=== PATIENT | female | born 1975 | race Caucasian/White ===

== ENCOUNTER 2018-11-08 17:36 | Emergency (ER) | payer MEDICAID ==
[~2018-11-08] VITALS: Ht 157.5 cm; Wt 66.3 kg
[~2018-11-08 17:36] MED LIST: CALC600T5 PO
[2018-11-08 17:41] VITALS: Ht 157.5 cm; Wt 66.3 kg
[2018-11-08] MEDS ORDERED: KETOROLAC 30 MG INJ IM STA ×2 (19:53→20:57)
--- NOTE | 2018-11-08 20:04 | ERD ---
ER Documentation Chief Complaint Chief Complaint Fever, LONG, CWP, ST X 2 days HPI 43-year-old female no reported past medical history who presents with 2-day complaint of fever, headache, head congestion, dry cough, sore throat, sinus pressure. Had intermittent pleuritic type chest discomfort with a dry cough. With nausea and one episode of vomiting and mild epigastric abdominal discomfort. She otherwise denies chest pain at rest or with exertion, SOB, dyspnea, LE swelling. Denies any other sick contacts at home. She reports to be in pretty good health prior to this episode. Also with complaint of urinary frequency. Took Advil which helps with the pain somewhat. Time exam nation patient was noted for fever and tachycardia and mild distress. ROS All systems reviewed and are negative except as per history of present illness. Medications Home Meds Active Scripts Tramadol HCl (Tramadol HCl) 50 Mg Tablet, 50 MG PO Q6 PRN for PAIN, #7 TAB Prov:KAILASHUDINEMAURICIOHO PA-C 11/08/18 Amoxicillin* (Amoxicillin*) 500 Mg Cap, 500 MG PO BID for 10 Days, CAP Prov:JEUDINEMAURICIOHO PA-C 11/08/18 Acetaminophen* (Tylophen*) 500 Mg Capsule, 1 CAP PO Q6H PRN for PAIN AND OR ELEVATED TEMP, #30 CAP Prov:KAILASHUDINE,MAURICIOHO PA-C 11/08/18 Reported Medications Calcium Carbonate (CALCIUM) 600 Mg Tablet, 600 MG PO DAILY 08/16/13 Discontinued Scripts Cephalexin* (Keflex*) 500 Mg Capsule, 500 MG PO QID for 7 Days, CAP Prov:JEUDINE,MAURICIOHO PA-C 11/08/18 Allergies Allergies: Coded Allergies: No Known Allergy (Unverified , 08/16/13) PMhx/Soc Medical and Surgical Hx: pt denies Medical Hx History of Surgery: Yes (csection, r fingers after accident) Anesthesia Reaction: No Hx Alcohol Use: No Hx Substance Use: No Hx Tobacco Use: No Smoking Status: Never smoker FmHx Family History: No diabetes, No coronary disease, No other Physical Exam Vitals Vital Signs Date Temp Pulse Resp B/P (MAP) Pulse Ox O2 O2 Flow FiO2 Time Delivery Rate 11/08/18 99.0 107 18 121/69 95 Room Air 22:55 (86) 11/08/18 110 22:45 11/08/18 100.9 21:46 11/08/18 100.9 21:45 11/08/18 100.9 21:40 11/08/18 101.9 129 18 150/75 98 17:41 (100) Physical Exam I have reviewed the triage vital signs. Const: Well nourished, well developed, appears stated age, mild distress Eyes: PERRL, no conjunctival injection HENT: NCAT, Neck supple without meningismus, mild erythema posterior pharynx but no exudates, discharge, no prominent edema CV: RRR, Warm, well-perfused extremities RESP: CTAB, Unlabored respiratory effort GI: soft, tenderness to deep palpation to epigastrium, no tenderness lateral quadrants, non-distended, no rebound or guarding, appropriate bowel sounds, no masses or scars MSK: No gross deformities appreciated Skin: Warm, dry. No rashes Neuro: grossly non focal Psych: Appropriate mood and affect. Result Diagram: 11/08/18200211/08/182003 Results 24 hrs Laboratory Tests Test 11/08/18 20:03 11/08/18 20:04 11/08/18 20:45 11/08/18 20:48 White Blood Count 20.0 10^3/ul Red Blood Count 4.86 10^6/ul Hemoglobin 15.2 g/dl Hematocrit 43.2 % Mean Corpuscular 88.9 fl Volume Mean Corpuscular 31.3 pg Hemoglobin Mean Corpuscular 35.2 g/dl Hemoglobin Concen t Red Cell 12.4 % Distribution Width Platelet Count 268 10^3/UL Mean Platelet 10.5 fl Volume Immature 0.500 % Granulocytes % Neutrophils % 86.7 % Lymphocytes % 8.2 % Monocytes % 4.2 % Eosinophils % 0.1 % Basophils % 0.3 % Nucleated Red 0.0 /100WBC Blood Cells % Immature 0.100 10^3/ul Granulocytes # Neutrophils # 17.3 10^3/ul Lymphocytes # 1.6 10^3/ul Monocytes # 0.8 10^3/ul Eosinophils # 0.0 10^3/ul Basophils # 0.1 10^3/ul Nucleated Red 0.0 10^3/ul Blood Cells # Sodium Level 139 mmol/L Potassium Level 3.4 mmol/L Chloride Level 99 mmol/L Carbon Dioxide 28 mmol/L Level Anion Gap 12 Blood Urea 7 mg/dl Nitrogen Creatinine 0.51 mg/dl Est Glomerular > 60 mL/min Filtrat Rate mL/min Glucose Level 140 mg/dl Calcium Level 9.7 mg/dl Total Bilirubin 0.7 mg/dl Direct Bilirubin 0.00 mg/dl Indirect 0.7 mg/dl Bilirubin Aspartate Amino 30 IU/L Transf (AST/SGOT) Alanine 40 IU/L Aminotransferase (ALT/SGPT) Alkaline 100 IU/L Phosphatase Total Protein 7.8 g/dl Albumin 4.4 g/dl Globulin 3.40 g/dl Albumin/Globulin 1.29 Ratio Urine Color STRAW Urine Clarity CLEAR Urine pH 9.0 Urine Specific 1.005 Shade Urine Ketones NEGATIVE mg/dL Urine Nitrite NEGATIVE mg/dL Urine Bilirubin NEGATIVE mg/dL Urine NEGATIVE mg/dL Urobilinogen Urine Leukocyte NEGATIVE Pavan/ul Esterase Urine Microscopic 5 /HPF RBC Urine Microscopic 0 /HPF WBC Urine Hemoglobin 2+ mg/dL Urine Glucose NEGATIVE mg/dL Urine Total NEGATIVE mg/dl Protein POC Beta HCG, NEGATIVE Qualitative Current Medications Medications Dose Sig/Francisca Start Time Status Last (Trade) Ordered Route PRN Stop Time Admin Dose Reason Admin Ketorolac 30 mg ONCE STAT 11/08/18 DC Tromethamine IM 19:53 (Toradol) 11/08/18 19:56 Ketorolac 30 mg ONCE STAT 11/08/18 DC 11/08/18 Tromethamine IM 20:57 21:04 (Toradol) 11/08/18 20:58 Ibuprofen 600 mg ONCE ONCE 11/08/18 DC 11/08/18 (Motrin) PO 22:00 21:46 11/08/18 22:01 650 mg ONCE ONCE 11/08/18 DC 11/08/18 Acetaminophen PO 22:00 21:45 (Tylenol 11/08/18 22:01 Tab) Procedures/MDM 43 yo F who presents with URI type symptoms, fevers, epigastric abdominal pain. Noted with fever, tachycardia and WBC 20k. Nonetheless below work up has been unremarkable. The patient does not exhibit any clinical signs or symptoms concerning for serious bacterial infection or systemic illness. Based on history and clinical exam findings the patient does not appear to have evidence of pneumonia, strep pharyngitis, urinary tract infection, bacteremia, sepsis, or meningitis. Elevation in WBC count may be secondary to viral etiology. Patient with mild epigastric pain but with reassuring abdominal examination. Case discussed with attending and further imaging deferred at this time and patient asked to return in 8-12 hours for reassessment and further work up if necessary. Patient with sinus congestion and sore throat which is her most prominent complaint. Will elect to treat with amoxicillin. DISPOSITION PLAN: We discussed follow up with the patient's primary care doctor within 24 to 48 hours. Patient counseled regarding my diagnostic impression and care plan. Prior to discharge all questions answered. Pt agrees with treatment plan and understands strict return precautions. Precautionary instructions provided including instructions to return to the ER if not improving or for any worsening or changing symptoms or concerns. Disclaimer: Inadvertent spelling and grammatical errors are likely due to EHR/dictation software use and do not reflect on the overall quality of patient care. Also, please note that the electronic time recorded on this note does not necessarily reflect the actual time of the patient encounter. Departure Condition: Stable SHEREEN BENJAMIN PA-C Nov 08, 2018 20:04
[2018-11-08] MEDS ORDERED: IBUPROFEN 600 MG TAB PO ONE (22:00)
[2018-11-08] MEDS ORDERED: ACETAMINOPHEN 325 MG TAB PO ONE (22:00)
[2018-11-08] MEDS ORDERED: CEPH-443 PO (22:29)
[2018-11-08] MEDS ORDERED: ACET500C5 PO (22:29)
[2018-11-08] MEDS ORDERED: AMOX500C2 PO (22:29)
[2018-11-08] MEDS ORDERED: TRAM50TA2 PO (22:32)
[2018-11-08 22:55] VITALS: BP 121/69; PULSE 107; RESP 18
== END 2018-11-08 22:55 | disposition home or self-care (01) ==
LOC: FTE 17:36
DX: R50.9 Fever, unspecified (principal); R10.13 Epigastric pain; R00.0 Tachycardia, unspecified
CPT/HCPCS: 71046; 80053; 81001; 81025; 85025; 86308; 87400; 93005; 96372; J1885; Z7502; Z7610

== ENCOUNTER 2018-11-09 06:34 | Emergency (ER) | payer MEDICAID ==
[~2018-11-09] VITALS: Wt 66.0 kg
[~2018-11-09 06:34] MED LIST changes: +ACET500C5 PO; +AMOX500C2 PO; +TRAM50TA2 PO
[2018-11-09 06:51] VITALS: BP 123/69; PULSE 87; RESP 20
[2018-11-09] MEDS ORDERED: ONDANSETRON (ODT) 4 MG TAB ODT STA (08:28)
[2018-11-09] MEDS ORDERED: KETOROLAC 30 MG INJ IM STA (08:28)
--- NOTE | 2018-11-09 12:59 | ERD ---
ER Documentation Chief Complaint Chief Complaint marycruz, no complaints HPI 43-year-old woman seen and evaluated yesterday for URI symptoms and told to return today for reevaluation states she feels much better overall. She states she has continued mild symptoms including congestion, headache, and mild cough but she has been using her antibiotic and NSAIDs as prescribed. She denies neck pain or stiffness, no dysuria, no abdominal pain, no chest pain or shortness of breath. ROS All systems reviewed and are negative except as per history of present illness. Medications Home Meds Active Scripts Tramadol HCl (Tramadol HCl) 50 Mg Tablet, 50 MG PO Q6 PRN for PAIN, #7 TAB Prov:SHEREEN BENJAMIN PA-C 11/08/18 Amoxicillin* (Amoxicillin*) 500 Mg Cap, 500 MG PO BID for 10 Days, CAP Prov:SHEREEN BENJAMIN PA-C 11/08/18 Acetaminophen* (Tylophen*) 500 Mg Capsule, 1 CAP PO Q6H PRN for PAIN AND OR ELEVATED TEMP, #30 CAP Prov:SHEREEN BENJAMIN PA-C 11/08/18 Reported Medications Calcium Carbonate (CALCIUM) 600 Mg Tablet, 600 MG PO DAILY 08/16/13 Discontinued Scripts Cephalexin* (Keflex*) 500 Mg Capsule, 500 MG PO QID for 7 Days, CAP Prov:SHEREEN BENJAMIN PA-C 11/08/18 Allergies Allergies: Coded Allergies: No Known Allergy (Unverified , 08/16/13) PMhx/Soc History of Surgery: Yes (csection, r fingers after accident) Anesthesia Reaction: No Hx Alcohol Use: No Hx Substance Use: No Hx Tobacco Use: No Smoking Status: Never smoker Physical Exam Vitals Vital Signs Date Temp Pulse Resp B/P (MAP) Pulse Ox O2 O2 Flow FiO2 Time Delivery Rate 11/09/18 97.4 87 20 123/69 95 06:51 (87) Physical Exam GENERAL: Well-developed, well-nourished, well-hydrated, in no apparent distress, looks nontoxic in appearance HEENT: Moist mucous membranes, pink conjunctiva, no cervical spine tenderness or step-off deformities, no goiter, no jaundice or icterus, extraocular movements intact without pain. No submandibular induration, and no pharyngeal erythema NEURO: Alert and oriented 3, cranial nerves II through XII intact bilaterally, pupils equal round reactive to light, no focal deficits or facial asymmetry, sensation intact distally Strength 5/5 in upper and lower extremities bilaterally CARDIAC: Regular rate and rhythm, no murmurs rubs or gallops LUNGS: Clear bilaterally no wheezing crackles or stridor ABDOMEN: Soft nontender, no guarding, no rigidity, no rebound, no psoas sign no obturator sign. Normoactive bowel sounds Results 24 hrs Laboratory Tests Test 11/09/18 08:40 POC Beta HCG, Qualitative NEGATIVE Current Medications Medications Dose Sig/Francisca Start Time Status Last (Trade) Ordered Route PRN Stop Time Admin Dose Reason Admin Ketorolac 30 mg ONCE STAT 11/09/18 DC 11/09/18 Tromethamine IM 08: 08:50 (Toradol) 11/09/18 08:29 Ondansetron 4 mg ONCE STAT 11/09/18 DC 11/09/18 HCl (Zofran ODT 08:28 08:50 Odt) 11/09/18 08:29 Procedures/MDM Patient does continue with a mild continued headache and administered Toradol 30 mg IM and Zofran 4 mg p.o. for nausea. Patient looks well and is afebrile here vital signs are normal and she will be discharged to continue outpatient management and follow-up with PMD. Differential diagnoses considered, included but not limited to acute coronary syndrome, pulmonary embolism, aortic dissection, abdominal aortic aneurysm, sepsis, stroke, meningitis, encephalitis, pneumonia, appendicitis, cholecystitis, bowel obstruction, pyelonephritis, nephrolithiasis, cystitis, as well as metabolic, hematologic, and electrolyte abnormalities. As well as abscess, cellulitis, fractures, and dislocations. Patient feels much better at this time, and vital signs are normal, symptoms have improved. I did give strict instructions to return to the ED if symptoms continue or worsen, patient will otherwise follow-up with primary care physician . Patient understood instructions and agreed to plan. Disclaimer: Inadvertent spelling and grammatical errors are likely due to EHR/dictation software use and do not reflect on the overall quality of patient care. Also, please note that the electronic time recorded on this note does not necessarily reflect the actual time of the patient encounter. Departure Diagnosis: Primary Impression: Acute URI Additional Impression: Headache Headache type: tension-type Headache chronicity pattern: acute headache Intractability: not intractable Qualified Codes: G44.209 - Tension-type headache, unspecified, not intractable Ruled Out: Follow-up examination for injury Condition: Good Patient Instructions: Headache, Tension MADELEINE CARROLL MD Nov 09, 2018 12:59
== END 2018-11-09 09:31 | disposition home or self-care (01) ==
LOC: FTE 06:34
DX: J06.9 Acute upper respiratory infection, unspecified (principal); G44.209 Tension-type headache, unspecified, not intractable
CPT/HCPCS: 81025; J1885; Z7610; 96372